=== PATIENT | female | born 2000 | race Two or more races ===

== ENCOUNTER 2024-07-20 18:59 | Emergency (ER) | payer OTHER ==
[~2024-07-20] VITALS: Ht 170.2 cm; Wt 81.6 kg
[2024-07-20] MEDS ORDERED: KETOROLAC TROMETHAMINE 30 MG VIAL IM STA (20:45)
[2024-07-20] MEDS ORDERED: ORPHENADRINE CITRATE 30 MG/ML AMPUL IM STA (20:46)
[2024-07-20] MEDS ORDERED: NAPROXEN500 MG PO (22:31)
== END 2024-07-20 22:33 | disposition home or self-care (01) ==
LOC: ER 19:01
DX: M54.9 Dorsalgia, unspecified (principal)